=== PATIENT | female | born 1950 | race African-American/Black ===

== ENCOUNTER 2017-04-04 08:59 | Emergency (ER) | payer MEDICARE, BC ==
[~2017-04-04] VITALS: Ht 170.2 cm; Wt 108.9 kg
--- NOTE | ~2017-04-04 | CR72 ---
[facility] A Service of [facility] / [facility] RADIOLOGY TEXT RESULTS PATIENT: RADHA GARZA LOCATION: SED : 51 UNIT #: [id number] AGE: [address]: Low Jean-Baptiste MD SEX: F ORDER DR: [id number] [place] [id number] E MR#: [id number] Acc #: [id number] NAME: RADHA GARZA : 1950 SEX: F STUDY DATE/TIME: 04/04/2017 10:57 UNIT: SED ROOM: STUDY DESCRIPTION: CR Chest Single View Portable Attending Physician: Low Jean-Baptiste M.D. Ordering Physician: Low Jean-Baptiste M.D. Primary Care Physician: Jenae Vargas M.D. MEDICAL IMAGING REPORT This report is preliminary unless electronic signature is present. EXAM Chest, portable, 04/04/2017, 1057 hours. CLINICAL HISTORY 67-year-old woman with left neck pain radiating to left arm with numbness and tingling in left arm today. History of asthma and hypertension. COMPARISON None FINDINGS Portable upright chest demonstrates heart size at the upper limits of normal. There is a mildly tortuous aorta. The lungs are clear of acute densities. There is no effusion or pneumothorax. IMPRESSION Heart size at the upper limits of normal with mildly tortuous descending thoracic aorta. The lungs are clear of acute densities. There is no pleural effusion or pneumothorax. No bone lesion seen. Dictated by... Aleena Ayon M.D. THIS IS AN ELECTRONICALLY VERIFIED REPORT Aleena Ayon M.D. at 04/05/2017 9:32 AM MYNORM/shani TD: 04/04/2017 15:14 JOB #: [id number] [facility] A Service [facility] RADIOLOGY TEXT RESULTS PATIENT: RADHA GARZA LOCATION: SED : 51 UNIT #: [id number] AGE: [address]: Low Jean-Baptiste MD SEX: F ORDER DR: MEDICAL IMAGING REPORT Page 1 of 1
--- NOTE | ~2017-04-04 | CT52 ---
[facility] A Service of [facility] RADIOLOGY TEXT RESULTS PATIENT: RADHA GARZA LOCATION: SED : 51 UNIT #: [id number] AGE: [address]: Low Jean-Baptiste MD SEX: F ORDER DR: [id number] [place] [id number] E MR#: [id number] Acc #: [id number] NAME: RADHA GARZA : 1950 SEX: F STUDY DATE/TIME: 04/04/2017 10:54 UNIT: SED ROOM: STUDY DESCRIPTION: CT Cervical Spine Wo Cont Attending Physician: Low Jean-Baptiste M.D. Ordering Physician: Low Jean-Baptiste M.D. Primary Care Physician: Jenae Vargas M.D. MEDICAL IMAGING REPORT This report is preliminary unless electronic signature is present. EXAM CT Cervical spine 04/04/2017 1054 hours HISTORY 67-year-old woman complaining of neck pain radiating to left arm with numbness and tingling in left arm. Onset today. No reported injury. COMPARISON None. TECHNIQUE Axial noncontrasted images were obtained from the skull base through the upper thoracic spine. Sagittal and coronal reconstructions were performed. Total exam DLP 668 mGy-cm. This CT exam was performed with one or more of the following radiation dose reduction techniques: automatic control, adjustment of mA and/or kV according to patient size, and iterative reconstruction. FINDINGS Images through the posterior fossa are normal. The right mastoid air cells are normal. There is a fluid in the inferior aspect of the left mastoid air cells with sclerotic change suggesting mastoiditis which could be chronic. The C1-2 articulation demonstrates minimal spurring. The dens is intact. C2-3 is normal. C3-4 is normal. C4-5 demonstrates mild disc height loss but no disc protrusion or central canal or foraminal stenosis. C5-6 demonstrates very minimal broad-based central disc bulging without STS. [facility] A Service of [facility] RADIOLOGY TEXT RESULTS PATIENT: RADHA GARZA LOCATION: SED : 51 UNIT #: [id number] AGE: [address]: Low Jean-Baptiste MD SEX: F ORDER DR: significant mass effect on the thecal sac. No foraminal narrowing. C6-7 demonstrates no disc protrusion, central canal or foraminal stenosis. C7-T1 is normal. The alignment is normal and there is no fracture. IMPRESSION 1. Minimal disc bulging C4-5 and C5-6 with no central canal or foraminal stenosis. There is no fracture or malalignment. 2. Note is made of fluid in the inferior aspect of the left mastoid air cells with surrounding sclerotic changes in the bones suggesting mastoiditis which may be chronic. Dictated by... Aleena Ayon M.D. THIS IS AN ELECTRONICALLY VERIFIED REPORT Aleena Ayon M.D. at 04/05/2017 9:32 AM UNIQUE/vlad TD: 04/04/2017 15:06 JOB #: [id number] MEDICAL IMAGING REPORT Page 1 of 1
--- NOTE | ~2017-04-04 | EKG ---
PATIENT: RADHA GARZA UNIT #: [id number] Ventricular Rate: 64 BPM Atrial Rate: 64 BPM P-R Interval: 166 ms QRS Duration: 70 ms Q-T Interval: 422 ms QTC Calculation(Bezet): 435 ms P [place]: 17 degrees Calculated R [place]: 2 degrees Calculated T [place]: 43 degrees Diagnosis Line: Normal sinus rhythm Diagnosis Line: Inferior infarct , age undetermined Diagnosis Line: Abnormal ECG Diagnosis Line: No previous ECGs available Diagnosis Line: Confirmed by MARK KING MD ([id number]) on Diagnosis Line: 04/07/2017 11:11:19 AM INTERPRETING MD: CHRISTINE JACKSON
[2017-04-04] MEDS ORDERED: GLUCOTROL PO (09:19)
[2017-04-04] MEDS ORDERED: BUPROPION XL300 M1 PO (09:20)
[2017-04-04] MEDS ORDERED: LIPITOR20 MG PO (09:21)
[2017-04-04] MEDS ORDERED: CITALOPRAM HBR40 M1 PO (09:21)
[2017-04-04] MEDS ORDERED: SUPER B-50 COM1 EACH PO (09:22)
[2017-04-04 10:43] LABS: BASOPHIL% 0.6 % (0-2.5); EOSINOPHIL# 0.1 X10e3 (0-0.7); EOSINOPHIL% 1.2 % (0.0-7.0); HEMATOCRIT 38.6 % (35.0-45.0); HEMOGLOBIN 13.1 gm/dL (12.0-16.0); LYMPHOCYTE# 1.8 X10e3 (1.0-3.5); LYMPHOCYTE% 31.4 % (17.0-45.0); MEAN CELL VOLUME 88.4 FL (83-96); MEAN CORPUSCULAR HEMOGLOBIN 29.9 PG (28-34); MEAN CORPUSCULAR HGB CONC 33.9 g/dL (30-36); MEAN PLATELET VOLUME 8.5 FL (6.5-11.5); MONOCYTE# 0.4 X10e3 (0-1.0); MONOCYTE% 7.4 % (3.0-12.0); NEUTROPHIL# 3.4 X10e3 (1.5-7.1); NEUTROPHIL% 59.4 % (40-75); PLATELET COUNT 158 X10e3 (140-420); RED BLOOD COUNT 4.37 X10e (3.90-5.30); RED CELL DISTRIBUTION WIDTH 14.2 % (11.0-15.5); WHITE BLOOD COUNT 5.7 X10e3 (4.0-10.5)
[2017-04-04 10:44] LABS: DIFF IND NO
[2017-04-04 11:13] LABS: ALBUMIN SERUM 3.7 g/dL (3.5-5.0); ALKALINE PHOSPHATASE 133 U/L (32-92); ALT (SGPT) 15 U/L (10-40); AST (SGOT) 19 U/L (10-42); BILIRUBIN,TOTAL 0.9 mg/dL (0.2-2.0); BLOOD UREA NITROGEN 19 mg/dL (9-23); BUN/CREATININE RATIO 17.27; CALCIUM SERUM 8.9 mg/dL (8.4-10.2); CARBON DIOXIDE 27 mmol/L (22-31); CHLORIDE 106 mmol/L (100-111); CREATININE SERUM 1.1 mg/dL (0.6-1.4); GLOM FILT RATE Estimated 60.6 mL/min (>60); GLUCOSE FASTING 157 mg/dL (70-110); POTASSIUM 4.1 mmol/L (3.5-5.1); PROTEIN TOTAL SERUM 7.3 g/dL (6.0-8.3); SODIUM 137 mmol/L (135-145)
[2017-04-04 11:14] LABS: BILIRUBIN, DIRECT <0.1 mg/dL (0.0-0.2); BILIRUBIN,INDIRECT 0.8 mg/dL (0.0-0.9)
[2017-04-04 15:13] LABS: POC - CKMB 1.2 ng/mL (0.0-7.9); POC - TROPONIN <0.05 ng/mL (<=0.05)
== END 2017-04-04 12:05 | disposition home or self-care (01) ==
LOC: SED 08:59
PROVIDERS: Emergency Medicine
DX: M54.12 Radiculopathy, cervical region (principal); H70.12 Chronic mastoiditis, left ear; I10 Essential (primary) hypertension; E11.9 Type 2 diabetes mellitus without complications; F41.9 Anxiety disorder, unspecified; Z88.0 Allergy status to penicillin; Z79.899 Other long term (current) drug therapy
CPT/HCPCS: 36415; 71010; 72125; 80048; 80076; 82553; 83880; 84484; 85025; 93005; 96374; 96375; 99285; J1885; J2405